=== PATIENT | female | born 1960 | race Two or more races ===

== ENCOUNTER 2023-07-20 00:15 | Emergency (ER) | payer BC ==
[~2023-07-20] VITALS: Ht 162.6 cm; Wt 64.4 kg
[2023-07-20] MEDS ORDERED: AMLODIPINE-OLM1 EAC3 PO (00:23)
[2023-07-20 01:23] LABS: HEMATOCRIT 39.8 % (36.0-45.00); HEMOGLOBIN 13.3 g/dL (12.0-15.00); MEAN CELL VOLUME 87.5 fL (80.00-100.00); MEAN CORPUSCULAR HEMOGLOBIN 29.2 pg (27.00-32.0); MEAN CORPUSCULAR HGB CONC 33.3 g/dl (32.0-36.0); PLATELET COUNT 263 K/uL (150-450); RED BLOOD COUNT 4.55 M/uL (4.00-6.00); RED CELL DISTRIBUTION WIDTH 12.8 % (11.5-14.5)
[2023-07-20 01:55] LABS: INR 0.98; PARTIAL THROMBOPLASTIN TIME 22.2 SECONDS (22.0-34.0); PROTHROMBIN TIME 10.3 SECONDS (9.0-11.5)
[2023-07-20 02:26] LABS: ALBUMIN 4.1 gm/dL (3.4-5.0); BILIRUBIN TOTAL 0.21 mg/dL (0.3-1.2); CALCIUM 9.1 mg/dL (8.5-10.1); CREATININE SERUM 1.51 mg/dL (0.55-1.02); GFR 34.8; GLOBULINA 3.5 G/DL (2.4-3.5); POTASSIUM 3.56 mEq/L (3.5-5.1); TOTAL PROTEIN 7.6 gm/dL (6.4-8.2)
== END 2023-07-20 05:24 | disposition home or self-care (01) ==
LOC: ER 00:15
DX: S22.41XA Multiple fractures of ribs, right side, initial encounter for closed fracture (principal); S00.03XA Contusion of scalp, initial encounter; W18.39XA Other fall on same level, initial encounter; Y93.89 Activity, other specified; Y92.89 Other specified places as the place of occurrence of the external cause